=== PATIENT | female | born 1995 | race Hispanic/Latino ===

== ENCOUNTER 2017-10-01 22:14 | Emergency (ER) | payer SELFPAY ==
[~2017-10-01] VITALS: Ht 153.7 cm; Wt 50.4 kg
[~2017-10-01 22:14] MED LIST: MACRODANTIN100 MG PO; PRENATAL MULTI +DHA PO
[2017-10-01 23:44] VITALS: BP 124/82
== END 2017-10-01 23:45 | disposition home or self-care (01) | DRG 866 ==
LOC: ED 22:14
DX: B27.90 Infectious mononucleosis, unspecified without complication (principal)

== ENCOUNTER 2018-05-19 08:43 | Emergency (ER) | payer OTHER ==
[~2018-05-19] VITALS: Ht 153.7 cm; Wt 50.0 kg
[2018-05-19 09:41] LABS: IMMATURE GRANULOCYTES 0.2 % (0.0-5.0); MEAN CELL VOLUME 91.8 fL CALC (80.0-100.0); MEAN CORPUSCULAR HGB 32.2 pG CALC (26.0-32.0); MEAN CORPUSCULAR HGB CONC 35.1 g/L CALC (32.0-36.0); NEUT# 3.65 thou/uL (2.00-7.15); RED BLOOD COUNT 4.38 mill/uL (4.20-5.60); RED CELL DISTRI WIDTH 11.3 % (11.5-15.5)
[2018-05-19 09:47] LABS: HEMATOCRIT 40.2 % (37.0-47.0); HEMOGLOBIN 14.1 g/dl (12.0-16.0)
[2018-05-19 09:55] LABS: URINE BILIRUBIN - DIPSTICK NEGATIVE (NEGATIVE); URINE BLOOD DIPSTICK NEGATIVE (NEGATIVE); URINE COLOR YELLOW; URINE GLUCOSE - DIPSTICK NEGATIVE (NEGATIVE); URINE KETONE NEGATIVE (NEGATIVE); URINE LEUK ESTERASE TRACE (NEGATIVE); URINE NITRITE - DIPSTICK NEGATIVE (Negative); URINE PROTEIN - DIPSTICK NEGATIVE (NEG-TRACE); URINE SPECIFIC GRAVITY 1.025; URINE UROBILINOGEN - DIPSTICK 0.2 E.U./dL (0.2)
[2018-05-19 09:56] LABS: URINE CLARITY CLEAR
[2018-05-19 10:03] LABS: ALBUMIN 4.1 g/dL (3.2-5.0); ALKALINE PHOSPHATASE 68 u/l (38-126); AMYLASE 76 u/l (30-110); ANION GAP 15 (6-22 (CALC)); BILIRUBIN, TOTAL 0.6 mg/dL (0.0-1.4); BUN 14 mg/dL (7-17); BUN/CREATININE RATIO 25 (12-20 (CALC)); CARBON DIOXIDE 27 mmol/l (22-30); CHLORIDE 103 mmol/l (95-108); CREATININE 0.6 mg/dL (0.5-1.0); GFR > 60 ML/MIN (>=60 (CALC)); GFR FOR AFR.AMER. > 60 ML/MIN (>=60 (CALC)); LIPASE 104 u/l (23-300); POTASSIUM 3.8 mmol/l (3.5-5.1); SGOT/AST 18 u/l (14-36); SGPT/ALT 22 u/l (9-52); SODIUM 141 mmol/l (137-146); TOTAL PROTEIN 7.1 g/dL (6.3-8.2)
[2018-05-19] MEDS ORDERED: MIRALAX3350 N1 PO (10:27)
[2018-05-19 10:34] VITALS: BP 100/53
== END 2018-05-19 10:39 | disposition home or self-care (01) | DRG 392 ==
LOC: ED 08:43
PROVIDERS: Emergency Medicine
DX: K59.00 Constipation, unspecified (principal)